=== PATIENT | female | born 1995 | race Caucasian/White ===

== ENCOUNTER 2017-08-07 15:49 | Emergency (ER) | payer BC, MEDICAID ==
[2017-08-07 16:00] VITALS: BP 108/71
--- NOTE | 2017-08-07 16:10 | UC ---
Breast Complaint - HPI Summary HPI Summary: Pt c/o right breast tenderness. Pt is and is 3 weeks - History of Current Complaint Hx Obtained From: Patient Breast Chief Complaint: Pain, Breast, Right, Color Changes - mild erythema Onset/Duration: Started Days Ago, Atraumatic, Still Present Timing: Constant Breast Pain Radiates To: Right Breast Pain Aggravating Factors: Breast Feeding Breast Pain Alleviating Factors: Breast Feeding Breast Associated Signs/Symptoms: Redness - Additional Pertinent History Breast History: First Time - Allergy/Home Medications Allergies/Adverse Reactions: Allergies Allergy/AdvReac Type Severity Reaction Status Date / Time No Known Allergies Allergy Verified 08/07/17 16:00 Home Medications: Home Medications Vit W/ Ferrous Fumara [ Complete 14-0.4 mg] 1 08/07/17 [History ] PMH/Surg Hx/FS Hx/Imm Hx Previously Healthy: Yes - Surgical History Surgical History: None - Family History Known Family History: Positive: Cardiac Disease - Social History Occupation: Employed Full-time Lives: With Family Alcohol Use: None Substance Use Type: None Smoking Status (MU): Never Smoked Tobacco Have You Smoked in the Last Year: No - Immunization History Most Recent Influenza Vaccination: CURRENT FOR Vaccination Up to Date: Yes Review of Systems Constitutional: Negative Skin: Other - erythema Eyes: Negative ENT: Negative Respiratory: Negative Cardiovascular: Negative Gastrointestinal: Negative Genitourinary: Negative Motor: Negative Neurovascular: Negative Musculoskeletal: Negative Neurological: Negative Psychological: Negative Is Patient Immunocompromised?: No All Other Systems Reviewed And Are Negative: Yes Physical Exam Triage Information Reviewed: Yes Appearance: Well-Appearing Vital Signs: Initial Vital Signs Temp 97.1 F 08/07/17 15:55 Pulse 94 08/07/17 15:55 Resp 18 08/07/17 15:55 BP 108/71 08/07/17 15:55 Pulse Ox 98 08/07/17 15:55 Vital Signs Reviewed: Yes Eye Exam: Normal ENT Exam: Normal Neck exam: Normal Respiratory Exam: Normal Cardiovascular Exam: Normal Musculoskeletal Exam: Normal Neurological Exam: Normal Psychological Exam: Normal Skin Exam: Normal - Additional Comments Right breast, mild erythema from 6 o'clock to 1 o'clock area. Breast Pain Course/Dx - Differential Diagnoses Differential Diagnosis/HQI/PQRI: Breast Abscess, Mastitis - Diagnoses Provider Diagnoses: Mastitis, right, acute Discharge - Discharge Plan Condition: Stable Disposition: HOME Prescriptions: Cephalexin CAP* [Keflex 500 CAP*] 500 mg PO Q6H #40 cap Patient Education Materials: Mastitis (ED) Referrals: Ariana Franklin MD [Primary Care Provider] - If Needed
== END 2017-08-07 16:16 | disposition home or self-care (01) ==
LOC: UCCORT 15:49
DX: N61.0 Mastitis without abscess (principal)
CPT/HCPCS: 99212; G0463